=== PATIENT | female | born 1980 | race Caucasian/White ===

== ENCOUNTER 2020-07-13 03:17 | Emergency (ER) | payer SELFPAY ==
[2020-07-13] MEDS ORDERED: Acetaminophen/HYDROcodone 325-5 MG Tab PO ONE (03:42)
[2020-07-13] MEDS ORDERED: Amoxicillin 500 MG Cap PO ONE (03:42)
--- NOTE | 2020-07-13 03:46 | EDM.PDOC ---
ED HPI GENERAL MEDICAL PROBLEM - General Chief Complaint: ENT Problem Stated Complaint: TOOTH PAIN Time Seen by Provider: 07/13/20 03:37 Source of Information: Reports: Patient, RN Notes Reviewed - History of Present Illness INITIAL COMMENTS - FREE TEXT/NARRATIVE: 40 yr female with broken off R upper molar. onset of pain a couple of days ago. Severe pain yesterday and this AM, unable to sleep. No fever or chills. No other unusual sx. 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: - Past Surgical History Female Surgical History: Reports: Section Social & Family History - Tobacco Use Smoking Status *Q: Never Smoker - Caffeine Use Caffeine Use: Reports: None - Recreational Drug Use Recreational Drug Use: No ED ROS ENT - Review of Systems Review Of Systems: See Below Constitutional: Denies: Fever, Chills HEENT: Reports: Dental Pain Respiratory: Denies: Shortness of Breath, Cough Cardiovascular: Denies: Chest Pain GI/Abdominal: Denies: Abdominal Pain, Vomiting Musculoskeletal: Reports: No Symptoms Skin: Denies: Rash Neurological: Reports: No Symptoms ED EXAM, ENT - Physical Exam Exam: See Below General Appearance: Alert, Mild Distress Mouth/Throat: Dental Pain (broken off R upper post molar, no visible swelling or drainage). No: Throat Pain, Throat Swelling, Tonsillar Erythema, Tonsillar Exudates Head: Atraumatic, Facial Tenderness (R mid face). No: Facial Swelling Respiratory/Chest: No Respiratory Distress, Lungs Clear Neurological: Alert, Oriented, No Motor/Sensory Deficits Skin: Warm, Dry, Normal Color, No Rash Course - Vital Signs Last Recorded V/S: Last Vital Signs Temp 98.5 F 07/13/20 03:27 Pulse 83 07/13/20 03:27 Resp 20 07/13/20 03:27 BP 135/87 07/13/20 03:27 Pulse Ox 100 07/13/20 03:27 - Orders/Labs/Meds Meds: Medications Discontinued Medications Generic Name Dose Route Start Last Admin Trade Name Freq PRN Reason Stop Dose Admin Hydrocodone Bitart/Acetaminophen 1 tab 07/13/20 03:42 07/13/20 03:47 Reyno 325-5 Mg PO 07/13/20 03:43 1 tab ONETIME ONE Administration Amoxicillin 1,000 mg 07/13/20 03:42 07/13/20 03:47 Amoxil PO 07/13/20 03:43 1,000 mg ONETIME ONE Administration Departure - Departure Time of Disposition: 03:43 Disposition: Home, Self-Care 01 Condition: Fair Clinical Impression: Fracture of tooth, Pain, dental - Discharge Information Prescriptions: Amoxicillin 500 mg PO TID #20 tab Hydrocodone/Acetaminophen [Reyno 5-325 Tablet] 1 each PO Q6HR PRN #20 tablet PRN Reason: Pain Referrals: PCP,None [Primary Care Provider] - Forms: ED Department Discharge Additional Instructions: amoxicillin 500 mg 3 times daily. Continue ibuprofen 600 mg 3 times daily with food. Tylenol in between doses for mild to moderate pain or hydrocodone if needed for severe pain. Do not take tylenol and hydrocodone at the same time. Do not drive when taking hydrocodone. See dentist as soon as possible. Sepsis Event Note (ED) - Evaluation Sepsis Screening Result: No Definite Risk - Focused Exam Vital Signs: Vital Signs Temp Pulse Resp BP Pulse Ox 07/13/20 03:27 98.5 F 83 20 135/87 100
== END 2020-07-13 03:54 | disposition home or self-care (01) ==
LOC: JD.ED 03:17
DX: K03.81 Cracked tooth (principal); Z88.2 Allergy status to sulfonamides
CPT/HCPCS: 99282; A9270; 99283

== ENCOUNTER 2020-07-15 13:26 | Emergency (ER) | payer SELFPAY ==
[2020-07-15] MEDS ORDERED: cefTRIAXone 1 GM Vial IM ONE (15:15)
--- NOTE | 2020-07-15 15:21 | EDM.PDOC ---
ED HPI GENERAL MEDICAL PROBLEM - General Chief Complaint: ENT Problem Stated Complaint: DENTAL COMPLAINT Time Seen by Provider: 07/15/20 13:43 Source of Information: Reports: Patient History Limitations: Reports: No Limitations - History of Present Illness INITIAL COMMENTS - FREE TEXT/NARRATIVE: The patient presents with right facial swelling and right upper dental pain. This has been going on for a few days and she was seen here on Monday and given pain meds and amoxicillin. She has been taking her meds and she ran out. She has more pain today. She says she also has fever and chills now. Onset: Gradual Duration: Week(s): Location: Reports: Face Quality: Reports: Sharp Severity: Severe Improves with: Reports: None Worsens with: Reports: None Associated Symptoms: Reports: No Other Symptoms Oral/Mouth Pain Score (Numeric/FACES): 8 - Related Data Allergies Allergy/AdvReac Type Severity Reaction Status Date / Time Sulfa (Sulfonamide Allergy Hives Verified 07/15/20 13:44 Antibiotics) Home Meds: Home Meds Amoxicillin 500 mg PO TID #20 tab 07/13/20 [Rx] Hydrocodone/Acetaminophen [[place] 5-325 Tablet] 1 each PO Q6HR PRN #20 tablet 07/13/20 [Rx] Hydrocodone/Acetaminophen [Hydrocodone-Acetamin 5-325 mg] 1 - 2 each PO Q6HR PRN #20 tablet 07/15/20 [Rx] Past Medical History - Past Health History Medical/Surgical History: Denies 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: - Past Surgical History Female Surgical History: Reports: Section Social & Family History - Family History Family Medical History: Noncontributory - Tobacco Use Smoking Status *Q: Never Smoker - Caffeine Use Caffeine Use: Reports: Coffee - Recreational Drug Use Recreational Drug Use: No ED ROS ENT - Review of Systems Review Of Systems: See Below Constitutional: Reports: Fever HEENT: Reports: Dental Pain Respiratory: Reports: No Symptoms Cardiovascular: Reports: No Symptoms Endocrine: Reports: No Symptoms GI/Abdominal: Reports: No Symptoms : Reports: No Symptoms ED EXAM, ENT - Physical Exam Exam: See Below Exam Limited By: No Limitations General Appearance: Alert, No Apparent Distress Ears: Normal External Exam Nose: Normal Inspection Mouth/Throat: Other (Pain upon palpation to the right upper jaw with some facial swelling.) Neck: Lymphadenopathy (L) Respiratory/Chest: No Respiratory Distress Course - Vital Signs Last Recorded V/S: Last Vital Signs Temp 98.6 F 07/15/20 13:40 Pulse 74 07/15/20 13:40 Resp 14 07/15/20 13:40 BP 118/74 07/15/20 13:40 Pulse Ox 99 07/15/20 13:40 - Orders/Labs/Meds Orders: Active Orders 24 hr Category Date Time Status cefTRIAXone [Rocephin] Med 07/15/20 15:15 Once 1 gm IM ONETIME ONE Medication Orders Ceftriaxone Sodium (Rocephin) 1 gm IM ONETIME ONE Stop: 07/15/20 15:16 Meds: Medications Generic Name Dose Route Start Last Admin Trade Name Freq PRN Reason Stop Dose Admin Ceftriaxone Sodium 1 gm 07/15/20 15:15 Rocephin IM 07/15/20 15:16 ONETIME ONE - Re-Assessments/Exams Free Text/Narrative Re-Assessment/Exam: 07/15/20 15:21 I ordered a shot of rocephin and I will give her more for pain. Departure - Departure Time of Disposition: 15:25 Disposition: Home, Self-Care 01 Condition: Good Clinical Impression: Pain, dental Fracture of tooth Qualifiers: Encounter type: initial encounter Fracture type: closed Qualified Code(s): S02.5XXA - Fracture of tooth (traumatic), initial encounter for closed fracture - Discharge Information *PRESCRIPTION DRUG MONITORING PROGRAM REVIEWED*: No *COPY OF PRESCRIPTION DRUG MONITORING REPORT IN PATIENT PRASHANTH: No Prescriptions: Hydrocodone/Acetaminophen [Hydrocodone-Acetamin 5-325 mg] 1 - 2 each PO Q6HR PRN #20 tablet PRN Reason: Pain Referrals: PCP,Not In Area [Primary Care Provider] - Additional Instructions: Take your amoxicillin. Take tylenol or motrin for pain. If that does not work, try the hydrocodone. Put warm compresses on your face a couple times per day. Sepsis Event Note (ED) - Evaluation Sepsis Screening Result: No Definite Risk - Focused Exam Vital Signs: Vital Signs Temp Pulse Resp BP Pulse Ox 07/15/20 13:40 98.6 F 74 14 118/74 99 - My Orders Last 24 Hours: My Active Orders 07/15/20 15:15 cefTRIAXone [Rocephin] 1 gm IM ONETIME ONE - Assessment/Plan Last 24 Hours: My Active Orders 07/15/20 15:15 cefTRIAXone [Rocephin] 1 gm IM ONETIME ONE
== END 2020-07-15 16:00 | disposition home or self-care (01) ==
LOC: JD.ED 13:26
DX: K08.89 Other specified disorders of teeth and supporting structures (principal); K03.81 Cracked tooth; R59.0 Localized enlarged lymph nodes; Z98.890 Other specified postprocedural states; Z88.2 Allergy status to sulfonamides
CPT/HCPCS: 96372; 99283; J0696